=== PATIENT | female | born 1985 | race American Indian/Alaskan Native ===

== ENCOUNTER 2019-02-05 06:42 | Emergency (ER) | payer BC ==
[2019-02-05 07:06] VITALS: BP 130/79
--- NOTE | 2019-02-05 07:29 | Emergency Department Report ---
ED Headache HPI - General Chief Complaint: Headache Stated Complaint: HEADACHE Time Seen by Provider: 02/05/19 07:25 - History of Present Illness Initial Comments: Pt reports persistent headache x 2 weeks w/ photophobia, intermittent blurred vision gradual onset, worsening no hx no n/v, fevers/neck stiffness Timing/Duration: constant, increasing Quality: moderate Head Injury Location: frontal, temporal Recent Head Trauma: no recent headache/trauma Associated Symptoms: other (intermittent epistaxis). denies: nasal congestion, nasal drainage Allergies/Adverse Reactions: Allergies No Known Allergies Allergy (Unverified 02/05/19 07:06) Home Medications: Ambulatory Orders Butalb/Acetamin/Caff 50-325-40 [Fioricet 50-325-40] 1 tab PO Q6HR PRN #15 tab 02/05/19 ED Review of Systems ROS: Stated complaint: HEADACHE Other details as noted in HPI Comment: All other systems reviewed and negative Neurological: as per HPI ED Past Medical Hx - Past Medical History Previous Medical History?: No - Surgical History Past Surgical History?: No - Social History Smoking Status: Current Every Day Smoker Substance Use Type: Alcohol - Medications Home Medications: Home Medications Medication Instructions Recorded Confirmed Last Taken Type Butalb/Acetamin/Caff 50-325-40 1 tab PO Q6HR PRN #15 tab 02/05/19 Unknown Rx [Fioricet 50-325-40] ED Physical Exam - General Limitations: No Limitations General appearance: alert, in no apparent distress - Head Head exam: Present: atraumatic, normocephalic - Eye Eye exam: Present: normal appearance, PERRL, EOMI Pupils: Present: normal accommodation - ENT ENT exam: Present: mucous membranes moist - Neck Neck exam: Present: normal inspection, full ROM. Absent: tenderness, meningismus - Respiratory Respiratory exam: Present: normal lung sounds bilaterally. Absent: respiratory distress - Cardiovascular Cardiovascular Exam: Present: regular rate, normal rhythm. Absent: systolic murmur, diastolic murmur, rubs, gallop - GI/Abdominal GI/Abdominal exam: Present: soft, normal bowel sounds - Extremities Exam Extremities exam: Present: normal inspection - Back Exam Back exam: Present: normal inspection - Neurological Exam Neurological exam: Present: alert, oriented X3, CN II-XII intact, normal gait, reflexes normal. Absent: motor sensory deficit - Psychiatric Psychiatric exam: Present: normal affect, normal mood - Skin Skin exam: Present: warm, dry, intact, normal color. Absent: rash ED Course Vital Signs 02/05/19 07:03 Temperature 98 F Pulse Rate 75 Blood Pressure 130/79 ED Medical Decision Making - Radiology Data Radiology results: report reviewed, image reviewed interpreted by me: normal normal - Medical Decision Making nonspecific [place], neuro intact low concern ICH/mass/meningitis no prior hx, will get CT anticipate PCP/neuro f/u CT negative neuro f/u for persistent sx - Differential Diagnosis tension [place]/migraine/unlikely mass Critical care attestation.: If time is entered above; I have spent that time in minutes in the direct care of this critically ill patient, excluding procedure time. ED Disposition Clinical Impression: Headache Qualifiers: Headache type: unspecified Headache chronicity pattern: acute headache Intractability: not intractable Qualified Code(s): R51 - Headache Disposition: DC-01 TO HOME OR SELFCARE Is pt being admited?: No Condition: Good Instructions: Acute Headache (ED) Prescriptions: Butalb/Acetamin/Caff 50-325-40 [Fioricet 50-325-40] 1 tab PO Q6HR PRN #15 tab PRN Reason: Headache Referrals: ZHENG TAVAREZ MD [Primary Care Provider] - 3-5 Days FLORENTIN FALCON MD [Staff Physician] - 3-5 Days Time of Disposition: 09:14
[2019-02-05 07:48] LABS: HCG Qualitative,Urine Negative (Negative)
--- NOTE | 2019-02-05 09:00 | Cat Scan Report ---
PROCEDURE: CT HEAD/BRAIN WO CON TECHNIQUE: Computerized tomography of the head was performed without contrast material. HISTORY: headaches, new onset COMPARISONS: None . FINDINGS: The ventricles, cisterns and sulci are within normal limits. No intra parenchymal or extra-axial mas s, hemorrhage, or mass effect. Abebe and white-matter differentiation is within normal limits. Normal spherical shape of the globes. Paranasal sinuses and mastoid air cells are clear. No skull o r facial fracture visualized. IMPRESSION: No acute intracranial abnormality. Consider additional imaging for worsening/persistent symptoms. This document is electronically signed by Butch Ovalle MD., February 05 2019 08:59:13 AM ET
== END 2019-02-05 09:35 | disposition home or self-care (01) ==
LOC: ED 06:42
DX: R51 Headache (principal); H53.8 Other visual disturbances; H53.149 Visual discomfort, unspecified; F17.200 Nicotine dependence, unspecified, uncomplicated
CPT/HCPCS: 70450; 81025

== ENCOUNTER 2019-07-08 18:25 | Emergency (ER) | payer BC ==
[2019-07-08 18:43] VITALS: BP 122/84
--- NOTE | 2019-07-08 18:48 | Event Note ---
ED Screening Note Date of service: 07/08/19 ED Screening Note: This initial assessment/diagnostic orders/clinical plan/treatment(s) is/are subject to change based on patients health status, clinical progression and re- assessment by fellow clinical providers in the ED. Further treatment and workup at subsequent clinical providers discretion. Patient/guardian urged not to elope from the ED as their condition may be serious if not clinically assessed and managed. Initial orders include: 33yo BF states that she has had episodes of severe nosebleeds over the past 3 weeks. She further states that does not have a nosebleed this evening or any other symptoms tonight.
== END 2019-07-08 18:54 | disposition left against medical advice (07) ==
LOC: ED 18:25
DX: R04.0 Epistaxis (principal); Z53.21 Procedure and treatment not carried out due to patient leaving prior to being seen by health care provider